=== PATIENT | female | born 1980 | race Caucasian/White ===

== ENCOUNTER 2017-06-06 17:23 | Emergency (ER) | payer OTHER, MEDICAID ==
[2017-06-06 20:29] LABS: URINE BLOOD (Dip) POC 3+ (NEGATIVE); URINE GLUCOSE (Dip) POC Negative (NEGATIVE); URINE KETONES (Dip) POC Negative (NEGATIVE); URINE LEUKOCYTE EST (Dip) POC Negative (NEGATIVE); URINE NITRITE (Dip) POC Negative (NEGATIVE); URINE TOTAL PROTEIN POC Negative (NEGATIVE)
[2017-06-06 20:29] LABS: URINE PH (Dip) POC 5.5 (5.0-8.5)
[2017-06-06] MEDS: ACETAMINOPHEN 500 MG TAB PO (21:13)
== END 2017-06-06 22:55 | disposition home or self-care (01) ==
LOC: FTE 17:23
DX: N93.9 Abnormal uterine and vaginal bleeding, unspecified (principal)
CPT/HCPCS: 81003; 88305; 99284

== ENCOUNTER 2018-02-21 16:19 | Emergency (ER) | payer OTHER ==
[2018-02-21] MEDS: NAPROXEN 500 MG TAB PO (16:48)
== END 2018-02-21 16:57 | disposition home or self-care (01) ==
LOC: FTE 16:19
DX: M79.674 Pain in right toe(s) (principal); I10 Essential (primary) hypertension
CPT/HCPCS: 99282; Z7502